=== PATIENT | female | born 1950 | race Caucasian/White ===

== ENCOUNTER 2022-07-26 11:45 | Emergency (ER) | payer OTHER, MEDICARE ==
[2022-07-26 11:55] VITALS: BP 160/89; PULSE 68; RESP 18; TEMP 97.7; BMI 19.8
[2022-07-26] MEDS ORDERED: LIDOCAINE 5% TOPICAL PATCH TP ONE (12:03)
[2022-07-26] MEDS ORDERED: LIDOCAINE 5% TOPICAL PATCH ONE (12:22)
[2022-07-26] MEDS ORDERED: LIDOCAINE PATCH REMOVAL MC SCH (22:00)
== END 2022-07-26 13:25 | disposition home or self-care (01) ==
LOC: FER 11:45
DX: S20.212A Contusion of left front wall of thorax, initial encounter (principal); W01.198A Fall on same level from slipping, tripping and stumbling with subsequent striking against other object, initial encounter; Y92.89 Other specified places as the place of occurrence of the external cause
CPT/HCPCS: 71101-TC-LT-FY; 99283-25